=== PATIENT | female | born 1995 | race Two or more races ===

== ENCOUNTER 2018-11-09 09:25 | Observation (INO) | payer MEDICAID, OTHER ==
[2018-11-09] MEDS ORDERED: PREN-96 PO (11:32)
== END 2018-11-09 11:25 | disposition home or self-care (01) | DRG 566 ==
LOC: LDRP 09:25
PROVIDERS: ADMIT Obstetrics & Gynecology; ATTEND Obstetrics & Gynecology
DX: O36.5930 Maternal care for other known or suspected poor fetal growth, third trimester, not applicable or unspecified (principal); Z3A.37 37 weeks gestation of pregnancy
CPT/HCPCS: 59025; 76818; 81002; G0378

== ENCOUNTER 2018-11-16 12:37 | Observation (INO) | payer MEDICAID ==
[~2018-11-16 12:37] MED LIST: PREN-96 PO
== END 2018-11-16 14:50 | disposition home or self-care (01) | DRG 566 ==
LOC: LDRP 12:37
PROVIDERS: ADMIT Obstetrics & Gynecology; ATTEND Obstetrics & Gynecology
DX: O36.5930 Maternal care for other known or suspected poor fetal growth, third trimester, not applicable or unspecified (principal); Z3A.38 38 weeks gestation of pregnancy
CPT/HCPCS: 59025; 76818; 81002; G0378

== ENCOUNTER 2018-11-17 14:58 | Observation (INO) | payer MEDICAID | END 2018-11-17 16:00 | disposition home or self-care (01) | DRG 566 | LOC: LDRP 14:58 | PROVIDERS: ADMIT Specialist; ATTEND Specialist | DX: O36.5930 Maternal care for other known or suspected poor fetal growth, third trimester, not applicable or unspecified (principal); Z3A.39 39 weeks gestation of pregnancy | CPT/HCPCS: 59025; 81002; G0378 ==

== ENCOUNTER 2019-10-26 17:29 | Emergency (ER) | payer MEDICAID | END 2019-10-26 17:30 | disposition left against medical advice (07) | LOC: ER 17:29 | DX: J02.9 Acute pharyngitis, unspecified (principal); Z53.21 Procedure and treatment not carried out due to patient leaving prior to being seen by health care provider ==

== ENCOUNTER → 2019-10-26 | Emergency (ER) | payer MEDICAID ==
[2019-10-26 20:46] VITALS: BP 123/76
== END | disposition home or self-care (01) ==
LOC: ER 17:14
DX: J02.9 Acute pharyngitis, unspecified (principal)

== ENCOUNTER 2020-11-19 18:47 | Observation (INO) | payer MEDICAID ==
[~2020-11-19] VITALS: Ht 160 cm; Wt 77.1 kg
== END 2020-11-19 20:30 | disposition home or self-care (01) ==
LOC: LDRP 18:47
PROVIDERS: ADMIT Obstetrics & Gynecology; ATTEND Obstetrics & Gynecology
DX: Z34.83 Encounter for supervision of other normal pregnancy, third trimester (principal); Z3A.40 40 weeks gestation of pregnancy
CPT/HCPCS: 59025; 76818; 81002; G0378

== ENCOUNTER 2020-11-21 09:16 | Observation (INO) | payer MEDICAID ==
[~2020-11-21] VITALS: Ht 160 cm; Wt 77.1 kg
[2020-11-21] MEDS ORDERED: AMOX250C3 PO ×2 (09:51)
== END 2020-11-21 10:36 | disposition home or self-care (01) ==
LOC: LDRP 09:16
PROVIDERS: ADMIT Obstetrics & Gynecology; ATTEND Obstetrics & Gynecology
DX: O48.0 Post-term pregnancy (principal); Z3A.40 40 weeks gestation of pregnancy
CPT/HCPCS: 59025; 76818; 81002; 94760; G0378

== ENCOUNTER 2020-11-23 09:55 | Observation (INO) | payer MEDICAID ==
[~2020-11-23 09:55] MED LIST changes: +AMOX250C3 PO
== END 2020-11-23 11:53 | disposition home or self-care (01) ==
LOC: LDRP 09:55
PROVIDERS: ADMIT Obstetrics & Gynecology; ATTEND Obstetrics & Gynecology
DX: O48.0 Post-term pregnancy (principal); Z3A.40 40 weeks gestation of pregnancy
CPT/HCPCS: 59025; 76818; 81002; 94760; G0378

== ENCOUNTER 2020-11-25 07:47 | Inpatient (IN) | payer MEDICAID ==
[~2020-11-25] VITALS: Ht 160 cm; Wt 75.7 kg
[2020-11-25] MEDS ORDERED: WITCH HAZEL-GLYCERIN PAD TOP PRN (15:15)
[2020-11-25] MEDS ORDERED: PHISODERM TOP SOLN 240ML BTL TOP PRN (15:15)
[2020-11-25] MEDS ORDERED: LIDOCAINE 2%HCL (LOCAL ANESTH.) INJ 20ML MDV IJ PRN (15:15)
[2020-11-25] MEDS ORDERED: DERMOPLAST 60ML BOTTLE TOP PRN (15:15)
[2020-11-25] MEDS ORDERED: LACT. RINGERS/OXYTOCIN 20UNITS 1,000 ML IV SCH (15:15)
[2020-11-25] MEDS ORDERED: LACT. RINGERS/OXYTOCIN 20UNITS 500 ML IV ONE ×2 (15:15→15:45)
[2020-11-25] MEDS: LACTATED RINGER'S 1,000 ML IV SCH (15:33)
[2020-11-25 16:01] LABS: Eosinophils # (auto) 0 10 ^3/uL (0-0.8); Lymphocytes # (auto) 1.7 10 ^3/uL (0.4-5.4); Monocytes # (auto) 0.7 10 ^3/uL (0-1.3)
[2020-11-25 16:02] LABS: Basophils # (auto) 0 10 ^3/uL (0-0.2); Basophils % (auto) 0.3 % (0.0-2.0); Eosinophils % (auto) 0.4 % (0.0-7.0); Hematocrit 29.6 % (36.0-46.0); Lymphocytes % (auto) 13.6 % (10.0-50.0); Mean Corpuscular Hemoglobin 25.9 pg (28.0-32.0); Mean Corpuscular Hgb Conc. 33.7 g/dL (32.0-36.0); Mean Corpuscular Volume 76.9 fL (80.0-100.0); Monocytes % (auto) 5.5 % (0.0-12.0); Neutrophils # (auto) 9.8 10 ^3/uL (1.6-8.6); Neutrophils % (auto) 80.2 % (37.0-80.0); Red Blood Cells 3.84 10^6/uL (4.0-5.20); Red Cell Distribution Width 15.3 % (11.8-14.3); White Blood Cell 12.2 10^3/uL (4.4-10.8)
[2020-11-25 16:17] LABS: Albumin 2.4 g/dL (3.4-5.0); BUN/Creatinine Ratio 10.7; Calcium 8.2 mg/dL (8.5-10.1); Potassium 3.6 mmol/L (3.5-5.1)
[2020-11-25 16:20] LABS: Bilirubin, Total 0.4 mg/dL (0.2-1.0); Total Protein 7.5 g/dL (6.4-8.2)
[2020-11-25 16:25] LABS: INR 0.94 (0.9-1.15); Partial Thromboplastin Time 27.3 sec (23.6-33.0)
[2020-11-25 17:09] LABS: Urine Bacteria FEW /hpf (None Seen); Urine Blood Negative /uL (Negative); Urine Specific Gravity 1.006 (1.001-1.035); Urine WBC 1 /hpf (0 - 5)
[2020-11-25 17:23] LABS: Alcohol, Urine < 3.0 mg/dL (0-10); Amphetamine Screen, Urine NEGATIVE (NEGATIVE); Barbiturate Scree,Urine NEGATIVE (NEGATIVE); Benzodiazephine Screen, Urine NEGATIVE (NEGATIVE); Cannabinoid Screen, Urine NEGATIVE (NEGATIVE); Cocaine Screen, Urine NEGATIVE (NEGATIVE); Opiate Scree,Urine NEGATIVE (NEGATIVE); Phencyclidine Screen, Urine NEGATIVE (NEGATIVE)
[2020-11-26] MEDS: LACTATED RINGER'S 1,000 ML IV SCH (00:35)
[2020-11-26] MEDS ORDERED: IBUPROFEN 600 MG TAB PO PRN (03:30)
[2020-11-26] MEDS ORDERED: ACETAMINOPHEN 325 MG TAB PO PRN (03:30)
[2020-11-26 06:06] LABS: RPR Non Reactive (Non Reactive)
[2020-11-26 06:58] VITALS: BP 118/73
[2020-11-26 10:51] VITALS: BP 101/62
[2020-11-26 14:43] VITALS: BP 109/66
[2020-11-26 19:22] VITALS: BP 111/70
[2020-11-26 22:55] VITALS: BP 124/65
[2020-11-27 02:40] VITALS: BP 103/72
[2020-11-27 07:00] VITALS: BP 105/72
== END 2020-11-27 09:00 | disposition home or self-care (01) | DRG 560 ==
LOC: LDRP 13:10 → OBSVTOIN 14:46 → LDRP 16:25
PROVIDERS: ADMIT Obstetrics & Gynecology; ATTEND Obstetrics & Gynecology
PROC: 10E0XZZ Delivery of Products of Conception, External Approach (ICD-10-PCS; principal; 2020-11-26)
DX: O48.0 Post-term pregnancy (principal); Z37.0 Single live birth; Z20.822 Contact with and (suspected) exposure to COVID-19; Z3A.41 41 weeks gestation of pregnancy
CPT/HCPCS: 36415; 59025; 59409; 76818; 80053; 80307; 81001; 81002; 84112; 85025; 85610; 85730; 86592; 86850; 86900; 86901; 87426; 94760; 96360; 96361; 96365; 96366; 96374; G0378; J2590